=== PATIENT | female | born 1990 | race Caucasian/White ===

== ENCOUNTER → 2018-01-05 | Outpatient (CLI) | payer BC ==
--- NOTE | 2018-01-06 13:10 | EEG PRO FEE REPORT ---
EEG INTERPRETATION PATIENT NAME: DEVI SNIDER ROOM#: ORDER#: [id number] DATE OF STUDY: 01/05/2018 : 1990 REFERRING MD: GRADY DECKER M.D. MEDICATIONS: Vitamins History This is a 27 year old right handed woman with history of seizure as an with current abnormal movements and muscle cramps on the left side. The EEG was requested for possible seizures. EEG Interpretation This EEG was recorded in the awake and drowsy states. The awake EEG is characterized by a well organized background with a well developed and reactive posterior dominant rhythm of 10 Hz. Drowsiness is characterized by slowing of the background rhythms. Photic stimulation resulted in a good driving response. Hyperventilation resulted in mild generalized slowing of the background. There were no epileptiform abnormalities. The EKG showed a regular rhythm. EEG Impression This is a normal EEG in the awake and drowsy states. INTERPRETING PHYSICIAN: ERICA JOAQUIN M.D. /: MTEFCONTRERAS TT: 1300 ID: [id number] /: [id number] TD: [id number] JOB: [id number] cc:Radha DONNELLY M.D. > MTDD
== END ==
LOC: NEURO 08:37
PROVIDERS: ATTEND Pediatrics
DX: Q28.3 Other malformations of cerebral vessels (principal); R25.8 Other abnormal involuntary movements
CPT/HCPCS: 95819